=== PATIENT | female | born 1975 | race Caucasian/White ===

== ENCOUNTER 2024-02-20 14:06 | Outpatient (CLI) | payer OTHER, SELFPAY ==
--- NOTE | 2024-02-20 14:12 | XR_ITS ---
FINAL REPORT CLINICAL HISTORY: Hand pain FINDINGS: Left hand Two views were obtained. There is no fracture or dislocation. There are minimal osteoarthritic changes of the DIP and PIP joints. There are mild degenerative changes of the carpus. No bony erosion is identified. No soft tissue abnormality is identified. IMPRESSION: Mild diffuse degenerative changes. Reviewed, Interpreted and Dictated by Anh Coulter MD Transcribed by Martha Hung Authenticated and [facility]
--- NOTE | 2024-02-20 14:12 | XR_ITS ---
FINAL REPORT CLINICAL HISTORY: Shoulder pain FINDINGS: Left shoulder Three views were obtained. There is no fracture or dislocation. There are mild degenerative changes of the AC and glenohumeral joints. No soft tissue abnormality is identified. IMPRESSION: Mild degenerative changes. Reviewed, Interpreted and Dictated by Anh Coulter MD Transcribed by Martha Hung Authenticated and [facility]
[2024-02-20 17:12] LABS: Basophils # 0.1 K/mm3 (0-0.2); Basophils % 0.7 % (0.1-2.0); Eosinophils # 0.2 K/mm3 (0.0-0.4); Hematocrit 42.7 % (37.0-47.0); Lymphocytes % 27.5 % (10-50); Mean Corpuscular HGB Conc 32.8 g/dL (31.8-35.4); Mean Corpuscular Volume 94.7 fl (81-99); Mean Platelet Volume 10.8 fl (7.4-10.4); Monocytes # 0.5 K/mm3 (0.1-1.0); Neutrophils # 4.5 K/mm3 (1.8-7.8); Neutrophils % 61.7 % (37.0-80.0); Platelet Count 297 K/mm3 (142-424); Red Blood Count 4.51 M/mm3 (4.20-5.40); Red Cell Distribution Width 11.8 % (11.5-17.5); White Blood Count 7.3 K/mm3 (4.8-10.8)
[2024-02-20 17:22] LABS: Alanine Aminotransferase 19 U/L (12-78); Albumin Level 4.3 g/dl (3.5-5.0); Albumin/Globulin Ratio 1.9 (1.1-1.8); Alkaline Phosphatase 79 U/L (38-126); Anion Gap 11.6 mEq/L (5-15); Aspartate Amino Transferase 24 U/L (14-36); Bilirubin,Total 0.5 mg/dl (0.2-1.3); Blood Urea Nitrogen 13 mg/dl (7-17); Calcium 10.2 mg/dl (8.4-10.2); Carbon Dioxide 27 mmol/L (22.0-30.0); Chloride 104 mmol/L (98-107); Chol/HDL Ratio 3.1 (1-3.5); Cholesterol 217 mg/dl (140-200); Estimated Glomerular Filt Rate 76 ml/min (>60); GFR (African American) 92 ML/MIN (>60); Globulin 2.3 g/dL (1.3-3.2); Glucose 77 mg/dl (74-100); HDL Cholesterol 70 mg/dl (40-60); Potassium 4.6 mmoL/L (3.5-5.1); Sodium 138 mmol/L (136-145); Total Protein,Serum 6.6 g/dl (6.3-8.2); Triglycerides 142 mg/dl (30-150); Uric Acid 5.9 mg/dl (2.5-6.2); VLDL Cholesterol 28 mg/dL (0-40)
[2024-02-20 17:33] LABS: Direct LDL Cholesterol 121.37 mg/dL (100-129)
[2024-02-20 17:40] LABS: Free T4 (Free Thyroxine) 0.93 ng/dl (0.78-2.19)
[2024-02-20 17:46] LABS: Erythrocyte Sedimentation Rate 12 mm/hr (0-20)
[2024-02-20 17:53] LABS: Thyroid Stimulating Hormone 2.13 uIU/mL (0.465-4.68)
[2024-02-20 19:26] LABS: HIV Combo NEGATIVE (Negative)
[2024-02-20 19:34] LABS: Hepatitis C Ab Qual. W/ RFX NEGATIVE (Negative)
[2024-02-21 07:12] LABS: RA Latex Turbid. <10.0 IU/mL (<14.0)
[2024-02-25 08:33] LABS: Antinuclear Antibodies, IFA Positive
== END 2024-02-20 23:59 | disposition home or self-care (01) ==
LOC: RAD 14:09
PROVIDERS: PCP Internal Medicine; Visit Provider Internal Medicine
DX: M25.512 Pain in left shoulder (principal); M25.542 Pain in joints of left hand; Z13.220 Encounter for screening for lipoid disorders; Z13.29 Encounter for screening for other suspected endocrine disorder; Z13.1 Encounter for screening for diabetes mellitus; Z11.59 Encounter for screening for other viral diseases; Z11.4 Encounter for screening for human immunodeficiency virus [HIV]
CPT/HCPCS: 73030; 73120; 80053; 80061; 83036; 84439; 84443; 84550; 85025; 85651; 86038; 86431; 86803; 87389

== ENCOUNTER 2024-02-26 11:04 | Outpatient (RCR) | payer OTHER, SELFPAY ==
--- NOTE | 2024-02-26 15:35 | HMH.OTOPEV ---
OT Inpatient Evaluation Rehab OT Outpatient Eval Start: 02/26/24 15:18 Freq: Status: Active Protocol: Document 02/26/24 15:18 RMARSCECILE (Rec: 02/26/24 15:32 [email or web address] [id number]) E-signed By Calin Hebert, OT Outpatient Therapy Subjective History Subjective History Pt is a 48 year old female who reports to therapy for initial evaluation to left shoulder and left hand. Pt has complaints of left shoulder and left hand pain for ~2 years now. Pt reports the pain is not constant. Pt is right hand dominant. 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 Pt has most pain in anterior aspect of left shoulder that radiates back into the shoulder blade. Pt did test positive for shoulder special tests indicating possible left shoulder impingement. These symptoms could be exacerbated with postural changes and repetitive use of UE with her job. Pt also has complaints of left hand weakness a times and concerns of possible arthritis due to a nodule appearing recently on middle finger pip joint of left hand. Pt has full range of motion of all digits, normal strength at left digits, and good cutter helper strength. Pt's right hand cutter helper strength is actually weaker than the left side. Pt 's L shoulder does demonstrate with a decline in AROM and strength. Pt will continue to be seen in order to address all deficits. Short term goals: 1. Pt will increase left shoulder flexion to 160 degrees in order to complete daily overhead tasks independently ~50% of the time . 2. Pt will increase L shoulder abduction to 160 degrees to complete upper body dressing independently ~50% of the time. 3. Pt will increase L shoulder ER/IR to 80 degrees ( ER) and 45 degrees (IR) in order to complete lower body dressing (putting on and taking off belt) independently ~50% of the time. 4. Pt will increase strength to 4-/5 throughout left shoulder in order to complete heavier household tasks ( laundry, mopping, vacuuming) independently ~50% of the time . 5. Pt will verbalize decreased pain levels at worst in L shoulder to a 5/10 in order to complete daily ADLs independently ~50% of the time . 6. Pt will demonstrate improved endurance by completing left shoulder exercises for ~20 minutes prior to rest break in order to increase his tolerance for daily work activities. 7. Pt will demonstrate independence with HEP of AAROM exercises to increase overall functional use of left shoulder in daily activities ~ 75% of the time. 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 Pt will increase L shoulder flexion to 170 degrees in order to complete daily overhead tasks independently ~75% of the time . 2. Pt will increase L shoulder abduction to 170 degrees to complete upper body dressing independently ~75% of the time. 3. Pt will increase L shoulder ER/IR to 90 degrees ( ER) and 60 degrees (IR)in order to complete lower body dressing (putting on and taking off belt) independently ~75% of the time. 4. Pt will increase strength to 4/5 throughout left shoulder in order to complete heavier household tasks ( laundry, mopping, vacuuming) independently ~75% of the time . 5. Pt will verbalize decreased pain levels at worst in L shoulder to a 3/10 in order to complete daily ADLs independently ~75% of the time . 6. Pt will demonstrate improved endurance by completing L shoulder exercises for ~30 minutes prior to rest break in order to increase his tolerance for daily work activities. 7. Pt will demonstrate independence with HEP of Rotator cuff strengthening exercises to increase overall functional use of L shoulder for daily activities ~90% of the time. New diagnosis of cancer in past 12 No months? Chief Complaint Pain,Weakness Symptom Type Ache,Throb,Sharp,Dull Symptoms Relieved By Rest/Positioning Symptoms Aggravated By Physical Activity,Lifting Prior Functional Limitations None Current Functional Limitations Reaching,Lifting,Housework, Dressing,Recreation Activity Symptom Description Intermittent,Pain at Rest Level of pain today (0-10) 3 Pain scale - at its best (0-10) 0 Pain scale - at its worst (0-10) 7 Shoulder/Elbow Eval Shoulder Objective Measurements Shoulder ROM Left Shoulder Abduction Active Range of 145 degrees Motion (degrees) Shoulder Flexion Active Range of Motion 145 degrees (degrees) Query Text: Shoulder External Rotation Active Range 70 degrees of Motion (degrees) Shoulder Internal Rotation Active Range 25 degrees of Motion (degrees) Shoulder MMT Shoulder Abduction Strength Grade 3+ Fair+ Shoulder Flexion Strength Grade 3+ Fair+ Shoulder External Rotation Strength 3+ Fair+ Grade Shoulder Internal Rotation Strength 3+ Fair+ Grade Shoulder Strength Patient Testing Sitting Position Shoulder Special Tests impingement sign present shoulder exam left standard Shoulder Cross-Over Impingement Test Positive Left Shoulder Empty Can (Supraspinatus) Test Positive Left Elbow Objective Measurements Wrist/Hand Eval Imaging Engineer/Pinch Strength Right Imaging Engineer Strength Measurement (lbs) 50 Left Imaging Engineer Strength Measurement (lbs) 60 [facility] Activities Please rate your ability to do the following activities in the last week by selecting the number below the appropriate response. 1. Open a tight or new jar. Moderate difficulty 2. Do heavy lap cutter (e.g., wash Mild difficulty sousa, floors). 3. Carry a shopping bag or briefcase. Mild difficulty 4. Wash your back. Severe difficulty 5. Use a knife to cut food. No difficulty 6. Recreational activities in which you Moderate difficulty take some force or impact through your arm, shoulder, or hand (e.g., golf, hammering, tennis, etc.). 7. During the past week, to what extent Moderately has your arm, shoulder or hand problem interfered with your normal social activities with family, friends, neighbors or groups? 8. During the past week, were you Moderately limited limited in your work or other regular daily activites as a result of your arm, shoulder or hand problem? 9. Arm, shoulder or hand pain. Severe 10. Tingling (pins and needles) in your Mild arm, shoulder or hand. 11. During the past week, how much Moderate difficulty difficulty have you had sleeping because of the pain in your arm, shoulder or hand? Quick DASH 30 Work Module (optional) The following questions ask about the impact of your arm, shoulder or hand problem on your ability to work (including homemaking if that is your main work role). 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 Yes 1. Using your usual technique for your Moderate difficulty work? 2. Doing your usual work because of arm, Moderate difficulty shoulder or hand pain? 3. Doing your work as well as you would Severe difficulty like? 4. Spending your usual amount of time Severe difficulty doing your work? Quick Dash Work Module Score 14 OT Outpatient Assessment Impairments Problems/Impairments Palpation Tenderness,Impaired Range of Motion,Impaired Strength,Impaired Endurance, Impaired Lifting,Impaired Household Care,Impaired Recreational Activities, Impaired Work Activities, Subjective C/O Pain Prognosis Rehab Potential Good Clinical Impression Consistent with Diagnosis Yes Outpatient Therapy Plan of Care Treatment Plan May Include Therapeutic Exercise Including Home Yes Exercise Program Manual Therapy Techniques Yes Neuromuscular Re-education Yes Therapeutic Activities to Return to Yes Previous Functional/Work Level ADL/Self Care Education Yes Dry Needling Yes Thermal Modalities Yes Electrical Stimulation Yes Ultrasound/Phonophoresis Yes Iontophoresis Yes Parrafin Yes Orthotics/Bracing/Splinting Yes Massage Yes Eval/Re-Eval Yes Frequency Times per week 2 Duration Number of Weeks 6 Addendums This patient is a candidate for social No or vocational rehab? Patient/Guardian verbally acknowledges Yes understanding of treatment program and consents to further treatment? Patient/Guardian verbally acknowledges Yes understanding of diagnosis, prognosis and goals for treatment? Eval Complexity OT Charge 31025 - Moderate Complexity PHYSICIAN CERTIFICATION: I certify the specified therapy services for Margarita Martines are required, authorized, and reviewed every 30 days.
== END 2024-02-26 23:59 | disposition home or self-care (01) ==
LOC: OT 11:04
PROVIDERS: Visit Provider Internal Medicine
DX: M25.512 Pain in left shoulder (principal); M25.542 Pain in joints of left hand
CPT/HCPCS: 97166

== ENCOUNTER 2024-03-18 11:00 | Outpatient (RCR) | payer OTHER, SELFPAY | END 2024-03-18 23:59 | disposition home or self-care (01) | LOC: OT 11:00 | PROVIDERS: Visit Provider Internal Medicine | DX: M25.512 Pain in left shoulder (principal); M25.542 Pain in joints of left hand | CPT/HCPCS: 97014; 97110; 97140; G0283 ==

== ENCOUNTER 2024-08-15 09:53 | Outpatient (CLI) | payer OTHER, SELFPAY ==
--- OUTSIDE RECORDS SUMMARY | 2021-05-24 12:00 | XMS_ITS | Continuity of Care Document ---
Author Organization [facility] Address [address] [place] [address] Phone Care Team Providers Care Certified Dental Assistant Name Role Phone Radha OD, Arnav Unavailable Unavailable Allergies, Adverse Reactions, Alerts Substance Reaction Status Criticality No Known Allergies Active No Inform ation Procedures Procedure Date COMPREHENSIVE EXAM REFRACTION EYE EXAM, NEW PATIENT REFRACTION No Charge EYE EXAM, NEW PATIENT REFRACTION No Charge Advance Directives Directive Yes / No Effective Date File Name No Information Encounters Encounter Description Practice Location Reason(s) For Visit Diagnoses Date Provider Providers Copied on Encounter [facility], [address] [place] [address], [facility], tel:[phone] [facility] Routine vision exam (chief complaint) Myopia, bilateralPresbyopia 2 Hamp[address] Arnav. [facility], [address] [place], [place], [facility], . tel:[phone] [facility], [address] [place] [address], [facility], tel:[phone] [facility] routine vision exam (chief complaint) Myopia, bilateralPresbyopia 1 [place] Arnav. [facility], [address] [place], [place], [facility], . tel:[phone] [facility], [address] [place] [address], [facility], tel:[phone] [facility] routine vision exam (chief complaint) Myopia, bilateralMeibomian gland dysfnct right eye, upper and lower eyelidsMeibomian gland dysfnct left eye, upper and lower eyelids 9 Radha José. [facility], [address] [place], [address], . tel:[phone] Family History Family Member Type Diagnosis Age At Onset No Information Payers Payer name Insurance type Covered alliance party ID Dany carlson(s) VSP CI [id number] Social History Type Description Quantity Date Captured Comments Alcohol Use Details Unknown Caffeine Use Details Unknown Tobacco Use Status No Information Smoking Status No Information Smoking Tobacco Use Details Cigarette: No Details Available Cigarette: No Details Available Sex Female Chief Complaint And Reason For Visit From encounter dated '05/24/2021 16:00'. Routine vision exam (chief complaint). Description: The 45 year old female presents for evaluation of Routine vision exam in the right eye and left eye. Patient denies any issues with current vision,feels she can still see distance and near without much issue. Patient is losing insurance soon so wanted to get eyes checked to make sure reading portion of glasses is still accurate. COVID 19 Protocol: Upon entry into the office, the patient denied any present illnesses or possible COVID exposuresprior to being checked in for their appointment. Patient was advised that a face mask must be worn for the duration of the appointment. Reason For Referral Reason For Referral No Information History Of Present Illness Encounter Date Complaint History Of Prese nt Illness Routine vision exam The 45 year old female presents for evaluation of Routine vision exam in the right eye and left eye. Patient denies any issues with current vision, feels she can still see distance and near without much issue. Patient is losing insurance soon so wanted to get eyes checked to make sure reading portion of glasses is still accurate. COVID 19 Protocol: Upon entry into the office, the patient denied any present illnesses or possible COVID exposures prior to being checked in for their appointment. Patient was advised that a face mask must be worn for the duration of the appointment. routine vision exam The 44 year old female presents for evaluation of routine vision exam in the right eye and left eye. It affects both near and far vision. Is stating she's been spending a lot of time on the computer for work, hard to focus when looking around the room afterwards. Patient likes current glasses prescription with the progressive. COVID 19 Protocol: Patient was screened at the office prior to their appointment. Temperature was within normal limits. Screening questions were asked, and a face mask/covering was worn. routine vision exam The 42 year old female presents for evaluation of routine vision exam in the right eye and left eye. It affects both near and far vision. The symptom is constant. Patient notes stable distance vision. Reading is a little worse. She does not have correction for reading. MARY JO about 4 years ago with [employer] Functional Status Date Functional Assessmen t No Information Instructions Date Instruction Additional Infor rosa maria Impression/Plan Impression/Plan Return in 1-2 years with Arnav Garcia OD for Vision Exam. Related to Myopia, bilateral Follow up - Return i n 1-2 years with Arnav Garcia OD for Vision Exam. Related to Myopia, bilateral Impression/Plan - Ne w glasses Rx was given today. Related to Myopia, bilateral Follow up - Return in PRN Impression/Plan - Pa tient instructed on how to do eyelid warm compresses/mask for five minutes every day, as well as do cleansing eyelid scrubs/pump using commercially available lid cleanser such as OcuSoft. Patient instructed to use lubricating eye drops four times a day. Fish oil 3,000-4,000mg QD PO. Assessments Type Assessment Date assessment Myopia, bilateral assessment Presbyopia Patient Care Teams Name Effective Dates (start - stop) Status Members No Information
--- NOTE | 2024-08-15 10:00 | MM_ITS ---
PROCEDURE INFORMATION: Exam: MG Bilateral Screening 3D Mammography Exam date and time: 08/15/2024 10:02 AM Age: 48 years old Clinical indication: Screening. No family history of breast cancer. TECHNIQUE: Imaging protocol: Bilateral Screening tomosynthesis and 2D mammography including computer-aided detection (CAD) when performed. COMPARISON: No relevant prior studies available.If prior mammograms are provided, I am happy to add an addendum. FINDINGS: MAMMOGRAPHY: Breast composition: The breasts are heterogeneously dense, which may obscure small masses. Mass: None. Architectural distortion: None. Calcifications: No suspicious calcifications. Asymmetric density: None. Skin thickening: None. Axillary adenopathy: None. IMPRESSION: No mammographic evidence of malignancy. Annual screening is recommended unless otherwise clinically indicated. ASSESSMENT: BI-RADS Category 1: Negative.
== END 2024-08-15 23:59 | disposition home or self-care (01) ==
LOC: RAD 09:54
PROVIDERS: PCP Internal Medicine; Visit Provider Obstetrics & Gynecology
DX: Z12.31 Encounter for screening mammogram for malignant neoplasm of breast (principal); R92.333 Mammographic heterogeneous density, bilateral breasts
CPT/HCPCS: 77063; 77067

== ENCOUNTER 2024-08-19 13:55 | Outpatient (CLI) | payer OTHER, SELFPAY ==
--- OUTSIDE RECORDS SUMMARY | 2021-05-24 12:00 | XMS_ITS | Continuity of Care Document ---
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 [facility], [address] [place], [place], [facility], . tel:[phone] [facility], [address] [place] [address], [facility], tel:[phone] [facility] routine vision exam (chief complaint) Myopia, bilateralPresbyopia 1 [place] Arnav. [facility], [address] [place], [place], [facility], . tel:[phone] [facility], [address] [place] [address], [facility], tel:[phone] [facility] routine vision exam (chief complaint) Myopia, bilateralMeibomian gland dysfnct right eye, upper and lower eyelidsMeibomian gland dysfnct left eye, upper and lower eyelids 9 Radha José. [facility], [address] [place], [address], . tel:[phone] Family History Family Member Type Diagnosis Age At Onset No Information Payers Payer name Insurance type Covered libertarian ID Dany carlson(s) VSP CI [id number] Social History Type Description Quantity Date Captured [...] MARY JO about 4 years ago with [employer]. Functional Status Date Functional Assessmen t No [...]
--- NOTE | 2024-08-19 14:00 | CT_ITS ---
FINAL REPORT CLINICAL HISTORY: lung cancer screening FORMER SMOKER QUIT 8 YEARS AGO, 1/2PPD X25 YEARS COMPARISON: None FINDINGS: CT CHEST LOW DOSE SCREENING HISTORY: Screening exam for lung cancer. DOSE: CTDI vol: 2.90 mGy, DLP: 96.38 mGy*cm TECHNIQUE: Axial CT without IV contrast administration using low dose protocol. This study was performed with techniques to keep radiation doses as low as reasonably achievable, (ALARA). Individualized dose reduction techniques using automated exposure control or adjustment of mA and/or kV according to the patient's size were employed. No acute lung disease is present. There is a 2 mm left lower lobe nodule on image 38 series 3 adjacent to a calcified granuloma which probably represents a tiny noncalcified granuloma. There is also a 3 mm left upper lobe nodule on image 14 of series 3. No pleural or pericardial effusion is seen. No adenopathy or mass lesion is present. IMPRESSION: Small left lung nodules favored to be granulomas. LUNG RADS CATEGORY 2 RECOMMENDATION: 12 month LDCT follow up Reviewed, Interpreted and Dictated by Anh Coulter MD Transcribed by Caitlin Thorne Authenticated and [facility]
== END 2024-08-19 23:59 | disposition home or self-care (01) ==
LOC: RAD 14:31 → DIETICIAN 14:34
PROVIDERS: PCP Internal Medicine; Visit Provider Internal Medicine
DX: E66.01 Morbid (severe) obesity due to excess calories (principal)
CPT/HCPCS: 71271; 97802

== ENCOUNTER 2024-10-07 10:02 | Outpatient (CLI) | payer OTHER, SELFPAY ==
[2024-10-07 11:43] LABS: Ferritin 45.1 ng/ml (11.1-264)
[2024-10-07 11:57] LABS: Vitamin B12 515 pg/mL (239-931)
[2024-10-08 16:33] LABS: Deamidated Gliadin Abs, IgA 7 units (0-19); Deamidated Gliadin Abs, IgG 1 units (0-19)
[2024-10-10 08:14] LABS: Reticulin IgA Antibody Negative titer (Neg:<1:2.5)
[2024-10-10 08:14] LABS: Pancreatic Elastase, Fecal >800 (>200)
[2024-10-10 15:12] LABS: Saccharomyces cerevisiae, IgA <20.0 Units (0.0-24.9); Saccharomyces cerevisiae, IgG <20.0 Units (0.0-24.9)
== END 2024-10-07 23:59 | disposition home or self-care (01) ==
LOC: LAB 10:02
PROVIDERS: PCP Internal Medicine; Visit Provider Internal Medicine Gastroenterology
DX: K63.8219 Small intestinal bacterial overgrowth, unspecified (principal); K52.9 Noninfective gastroenteritis and colitis, unspecified
CPT/HCPCS: 36415; 82607; 82652; 82653; 82728; 86231; 86256; 86258; 86364; 86671

== ENCOUNTER 2024-10-10 11:09 | Outpatient (CLI) | payer OTHER, SELFPAY ==
--- NOTE | 2024-10-10 11:11 | XR_ITS ---
FINAL REPORT CLINICAL HISTORY: Swelling/pain, no known injury to right foot, no surgery on right foot FINDINGS: 2 views of the right foot were obtained. There is no prior exam for comparison. There is no acute fracture or dislocation. The joint spaces are intact. There is no soft tissue abnormality. IMPRESSION: No acute osseous abnormality. Reviewed, Interpreted and Dictated by Sherita Kohli MD Transcribed by Caitlin Thorne Authenticated and . [facility]
== END 2024-10-10 23:59 | disposition home or self-care (01) ==
LOC: RAD 11:09
PROVIDERS: PCP Internal Medicine; Visit Provider Internal Medicine
DX: M79.671 Pain in right foot (principal); M79.89 Other specified soft tissue disorders
CPT/HCPCS: 73620

== ENCOUNTER 2025-01-19 08:29 | Day surgery (SDC) | payer OTHER, SELFPAY ==
--- NOTE | 2025-01-14 06:50 | P.HP_ITS ---
History of Present Illness *Admission Date: 01/19/25 *History of present illness: Mrs. Martines is a 49-year-old female who is here for diagnostic EGD and colonoscopy. The patient does have a long history of generalized abdominal pain, bloating and gassiness. She also has nausea. She was seen in [facility] 5 years ago and diagnosed with SIBO from breath testing. At that time, she followed a low FODMAP diet and underwent pelvic floor physical therapy. The patient does feel as if she does not fully evacuate with incomplete defecation and excessive wiping. She does go from loose and urgent stools to straining and constipation. She does see occasional blood with her bowel movements. She also has noted mucus with her bowel movements. She reports early satiety and distention after meals with postprandial bloating. She reports no weight loss or family history of colon cancer. Her recent lab wo rk showed normal CBC with no anemia. She had normal liver chemistries. The patient has had no prior EGD or colonoscopy. She did have salpingectomy previously. The examination is deemed medically necessary for diagnostic EGD and colonoscopy. The patient has been seen, interviewed and examined prior to the procedure by both myself and the anesthesia provider. [facility] Disclaimer: The information contained in this section may have been updated after the patient was seen, as this information can be updated by other users. Medical History Hypertension Depression Anxiety Surgical History H/O oral surgery H/O bilateral salpingectomy Family History (Updated 01/19/25 @ 08:58 by Margarita Mcmahon RN) Father S/P quintuple vessel bypass Hypertension Mother Cancer Hypertension Asthma Other Schatzki's ring Social History (Updated 01/19/25 @ 09:01 by Margarita Mcmahon RN) Smoking Status: Former smoker how long ago did patient quit smokin years alcohol intake: current alcohol intake frequency: a few times a week substance use type: other details: gummies current occupational status: employed Travel in the last 8 weeks?: Inside the [place] caffeine: Yes Have you lived/traveled outside US in past 30 days?: No Contact w/someone who lives/traveled outside US past 30 days?: No Exposure to someone with infectious disease in past 14 days?: No Do you have a fever (greater than 100.4 F or 38 C)?: No Have you tested positive for COVID-19?: No Exposed to someone with COVID-19 in past 14 days?: No Do you have a sore throat?: No Do you have a cough?: No Do you have any weakness?: No Are you experiencing any nausea/vomitting?: No Do you have any diarrhea?: No Are you experiencing any unusual bleeding?: No Do you have any muscle aches/pain?: No Do you have any abdominal pain?: No Are you experiencing loss of taste or smell?: No Other Medical History Have you received the Pneumonia Vaccine: No Review of Systems Review of Systems Review of systems (narrative): Negative *Cardiovascular Comments: Negative *Gastrointestinal Comments: Negative *Genitourinary Comments: Negative *Musculoskeletal Comments: Negative *Neurologic Comments: Negative Meds Home Medications and Allergies Home Medications ?Medication ?Instructions ?Recorded ?Confirmed ?Type estradiol 0.025 mg/24 hr 1 patch topical .twice weekl y #8 ea 04/02/24 01/19/25 Rx semiweekly transdermal patch levonorgestrel (Mirena) 21 mcg intrauterine DIREC DEVONTE . 04/02/24 01/19/25 History varicella-zoster glycoE [id number] 0.5 ml IM .Twice #2 ea 10/10/24 01/19/25 Rx adj(PF) 50 mcg/0.5 mL IM susp, kit (Shingrix (PF)) telmisartan 80 mg tablet See Rx Instructions .Route 1 01/19/25 Rx .COMPLEX #90 tabs New Prescriptions to Start Prescriptions: Allergies Allergy/AdvReac Type Severity Reaction Status Date / Time No Known Allergies Allergy Verified 01/19/25 08:52 Exam *Routine HEENT Exam Head: Present normocephalic Eye: Present EOMI and PERRL ENT: Present mucous membranes moist *Routine Neck Exam Neck: Present supple *Routine Respiratory Exam Respiratory: Present CTA bilaterally *Routine Cardiovascular Exam Cardiovascular: Present RRR *Routine Abdominal Exam Abdominal: Present soft and normoactive bowel sounds; Absent tenderness *Routine Rectal Exam Rectal:: deferred *Routine Genitalia Exam Genitalia:: deferred *Routine Extremities Exam Extremities: Absent cyanosis, clubbing or edema *Routine Skin Exam Skin: Present warm; Absent rash *Routine Neurological Exam Neurological: Present alert and oriented X3 Assessment and Plan *Assessment and plan (1) Generalized abdominal pain: Status: Acute Category: Medical Code(s): R10.84 - Generalized abdominal pain (2) Nausea: Status: Acute Category: Medical Code(s): R11.0 - Nausea (3) Chronic diarrhea: Status: Acute Category: Medical Code(s): K52.9 - Noninfective gastroenteritis and colitis, unspecified (4) Bloating: Status: Acute Category: Medical Code(s): R14.0 - Abdominal distension (gaseous) (5) Incomplete defecation: Status: Acute Category: Medical Code(s): R15.0 - Incomplete defecation (6) Small intestinal bacterial overgrowth (SIBO): Status: Acute Category: Medical Code(s): K63.8219 - Small intestinal bacterial overgrowth, unspecified (7) Mucus in stool: Status: Acute Category: Medical Code(s): R19.5 - Other fecal abnormalities Plan A/P: 1. Nausea, bloating and generalized abdominal pain for upper endoscopy and chronic diarrhea with incomplete defecation and mucus in stool for colonoscopy is the preprocedural diagnosis. The patient will be anesthetized/sedated using MAC sedation. The patient has been seen and examined. Cardiac and lung assessment prior to the examination is stable. Proceed with planned diagnostic EGD and colonoscopy.
--- NOTE | 2025-01-19 06:43 | HMH.PROCNOTE ---
[facility] Procedure Note Date: 01/19/25 Time: 09:30 Procedure Note:: Upper Endoscopy Procedure Report: Esophagogastroduodenoscopy with cold biopsies and TTS balloon dilation Endoscopost: Braulio Brooks II, MD Referring Physician: Ian Ochoa DO Date of Procedure: January 19, 2025 Equipment: Olympus GIF-1100 standard upper endoscope Sedation: MAC sedation Indications: Mrs. Martines is a 49-year-old female who is here for diagnostic EGD and colonoscopy. The patient does have a long history of generalized abdominal pain, bloating and gassiness. She also has had intermittent nausea. She does report some epigastric abdominal pain, fullness, intermittent early satiety and occasional dysphagia. Her mother and uncle both had Schatzki's rings. She was seen in [facility] 5 years ago and diagnosed with SIBO from breath testing. At that time, she followed a low FODMAP diet and underwent pelvic floor physical therapy. The patient does feel as if she does not fully evacuate with incomplete defecation and excessive wiping. She does go from loose and urgent stools to straining and constipation. She does see occasional blood with her bowel movements. She also has noted mucus with her bowel movements. She reports early satiety and distention after meals with postprandial bloating. She reports no weight loss or family history of colon cancer. Her recent lab work showed normal CBC with no anemia. She had normal liver chemistries. The patient has had no prior EGD or colonoscopy. She did have salpingectomy previously. The examination is deemed medically necessary for diagnostic EGD and colonoscopy. Procedure: Prior to the procedure, a history and physical exam was performed, and patient's medications and allergies were reviewed. The risks, benefits and alternatives of the sedation and procedure were discussed with the patient. All questions were answered and informed consent was obtained. The patient was brought to the procedure room. Patient identification and proposed procedure were verified by the physician and the nurse. The patient was placed in a left lateral decubitus position and the scope was passed under direct vision. Throughout the procedure, the patient's blood pressure, pulse, and oxygen saturations were monitored continuously. The upper GI endoscopy was accomplished without difficulty. The patient tolerated the procedure well. Findings: The scope was passed directly into the upper esophagus and advanced to the third portion of the duodenum. The post bulbar duodenum and duodenal bulb were normal with normal mucosa and conniventes. 2 cold biopsies were taken from the second portion of the duodenum for the disaccharidase assay. 2 cold biopsies were taken from the bulb and first portion of the duodenum to rule out celiac disease. The scope was withdrawn through a normal duodenal bulb and pylorus into the stomach. There was bile reflux with mild linear reactive gastropathy of the antrum. The body and fundus of the stomach were normal. Upon retroflexion there was no hiatal hernia. Cold biopsies were taken from the antrum and lesser curvature. The scope was then withdrawn into the esophagus. There was no evidence of reflux esophagitis or Malloy's. There was no Schatzki's ring, strictures, webs, corrugation or furrowing. There were tertiary contractions and evidence of mild esophageal dysmotility. The entire esophagus was dilated to 60 Sy[place]/20 mm with a TTS hydrostatic balloon. There was mild resistance at the cricopharyngeus/cricopharyngeal spasm. The remainder of the esophageal mucosa was normal. Impression: 1. Nonerosive GERD with mild esophageal dysmotility and cricopharyngeal spasm 2. Bile reflux with mild linear reactive gastropathy of antrum Plan: I will follow-up the biopsies and disaccharidase assay. 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 We will discuss treatment options. I will proceed with diagnostic colonoscopy.
--- NOTE | 2025-01-19 06:43 | HMH.PROCNOTE ---
[facility] Procedure Note Date: 01/19/25 Time: 09:45 Procedure Note:: Colonoscopy Procedure Report: Colonoscopy with cold snare polypectomy Endoscopist: Braulio Brooks II, MD Referring physician: Ian Ochoa DO Date of Procedure: January 19, 2025 Equipment: Olympus [id number] adult colonoscope Sedation: MAC sedation Indication: Mrs. Martines is a 49-year-old female who is here for diagnostic EGD and colonoscopy. The patient does have a long history of generalized abdominal pain, bloating and gassiness. She also has had intermittent nausea. She does report some epigastric abdominal pain, fullness, intermittent early satiety and occasional dysphagia. Her mother and uncle both had Schatzki's rings. She was seen in [facility] 5 years ago and diagnosed with SIBO from breath testing. At that time, she followed a low FODMAP diet and underwent pelvic floor physical therapy. The patient does feel as if she does not fully evacuate with incomplete defecation and excessive wiping. She does go from loose and urgent stools to straining and constipation. She does see occasional blood with her bowel movements. She also has noted mucus with her bowel movements. She reports early satiety and distention after meals with postprandial bloating. She reports no weight loss or family history of colon cancer. Her recent lab work showed normal CBC with no anemia. She had normal liver chemistries. The patient has had no prior EGD or colonoscopy. She did have salpingectomy previously. The examination is deemed medically necessary for diagnostic EGD and colonoscopy. Procedure: Prior to the procedure, a history and physical exam was performed, and patient's medications and allergies were reviewed. The risks, benefits and alternatives of the sedation and procedure were discussed with the patient. All questions were answered and informed consent was obtained. The patient was brought to the procedure room. Patient identification and proposed procedure were verified by the physician and the nurse. The patient was placed in a left lateral decubitus position and the scope was passed under direct vision. Throughout the procedure, the patient's blood pressure, pulse, and oxygen saturations were monitored continuously. The colonoscopy was accomplished without difficulty. The patient tolerated the procedure well. Findings: On digital rectal examination there was normal rectal tone. There were no external hemorrhoids. The colonoscope was introduced through the anal canal to the rectum and advanced to the cecum. The ileocecal valve and appendiceal orifice were identified. The scope was advanced a short distance into the ileum which appeared grossly normal. The scope was then withdrawn into the colon. There was a single diminutive 3 mm polyp in the descending colon removed via cold snare polypectomy. The remaining cecum, ascending, transverse, descending, sigmoid and rectum were grossly normal. There were no mucosal abnormalities identified. Upon retroflexion within the rectum there were grade 1-2 internal hemorrhoids. The preparation was excellent throughout with [place] Preparation Score of 9. The cecal time was 12 minutes. Impression: 1. Diminutive descending colon polyp (3 mm) 2. Grade 1-2 internal hemorrhoids Plan: I will follow-up the polyp histology and recommend repeat screening/surveillance colonoscopy again in 7 to 10 years based upon the pathology. 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 We will discuss treatment options.
[2025-01-19 08:50] VITALS: BP 157/77; PULSE 57; RESP 18; TEMP 36.6; O2SAT 98; BMI 38.0
[2025-01-19 09:04] VITALS: BMI 38.0
[2025-01-19] MEDS: LACTATED RINGERS 1000ML 1,000 ML 50 ML IV (09:08)
[2025-01-19 09:14] LABS: Urine Pregnancy, HCG Qual. Negative (Negative)
--- NOTE | 2025-01-19 09:17 | EXP.ANES.CKL ---
[facility] Disclaimer: The information contained in this section may have been updated after the patient was seen, as this information can be updated by other users. Medical History Hypertension Depression Anxiety Surgical History H/O oral surgery H/O bilateral salpingectomy Family History Father S/P quintuple vessel bypass Hypertension Mother Cancer Hypertension Asthma Other Schatzki's ring Social History Smoking Status: Former smoker how long ago did patient quit smokin years alcohol intake: current alcohol intake frequency: a few times a week substance use type: other details: gummies current occupational status: employed Travel in the last 8 weeks?: Inside the [place] caffeine: Yes Have you lived/traveled outside [place] in past 30 days?: No Contact w/someone who lives/traveled outside [place] past 30 days?: No Exposure to someone with infectious disease in past 14 days?: No Do you have a fever (greater than 100.4 F or 38 C)?: No Have you tested positive for COVID-19?: No Exposed to someone with COVID-19 in past 14 days?: No Do you have a sore throat?: No Do you have a cough?: No Do you have any weakness?: No Are you experiencing any nausea/vomitting?: No Do you have any diarrhea?: No Are you experiencing any unusual bleeding?: No Do you have any muscle aches/pain?: No Do you have any abdominal pain?: No Are you experiencing loss of taste or smell?: No [facility] Anesthesia Checklist Patient Identification Patient Identification: Arm Band and Verbal (Name & ) Structural Data Admitted From: Home Planned Operative Procedure/s: EGD and colonscopy Consent for Planned Operative Procedure(s) Verified: Yes Verified Documents: Surgical Consent and History and Physical NPO Status Verified Time NPO: 00:00 Additional verifications Patient : No Anesthesia Reactions: No Previous Colonoscopy: No Airway Assessment Mallampati Score:: Class II C-Spine Mobility Assessed: Yes TMJ Mobility Assessed: Yes Dentition: Good Dentition Neurological Assessment Level of Consciousness: Awake, Alert and Appropriate Hx Seizures: No Numbness or tingling in extremities: No Anesthesia Plan Anesthesia Risk discussed: Yes Anesthesia Plan: Verified ASA Class: II Anesthesia Type: MAC
[2025-01-19 09:48] VITALS: BP 100/58; PULSE 55; RESP 17; TEMP 36.2; O2SAT 97
[2025-01-19 09:58] VITALS: BP 104/64; PULSE 60; RESP 18; TEMP 36.2; O2SAT 98
[2025-01-19 10:08] VITALS: BP 124/49; PULSE 52; RESP 18; TEMP 36.2; O2SAT 100
[2025-01-19 10:18] VITALS: BP 156/84; PULSE 49; RESP 18; TEMP 36.2; O2SAT 100
[2025-01-23 15:01] LABS: Interpretation Notes (.); Lactase 15.04 (>/= 14.0); Maltase 263.58 (>/= 110.0); Palatinase 22.67 (>/= 8.5); Reference Notes (.); Sucrase 78.81 (>/= 25.0)
== END 2025-01-19 10:38 | disposition home or self-care (01) ==
PROVIDERS: PCP Internal Medicine; Visit Provider Internal Medicine Gastroenterology
PROC: 0DJ08ZZ Inspection of Upper Intestinal Tract, Via Natural or Artificial Opening Endoscopic (ICD-10-PCS; CPT 45378; principal; 2025-01-19 10:00)
DX: K21.9 Gastro-esophageal reflux disease without esophagitis (principal); K22.4 Dyskinesia of esophagus; K64.0 First degree hemorrhoids; K64.1 Second degree hemorrhoids; K63.5 Polyp of colon; K31.89 Other diseases of stomach and duodenum; I10 Essential (primary) hypertension; K52.9 Noninfective gastroenteritis and colitis, unspecified; K63.8219 Small intestinal bacterial overgrowth, unspecified
CPT/HCPCS: 43239; 43249; 45385; 81025; 82657; C1726; J2003; J2704; J7120